=== PATIENT | female | born 1960 | race Caucasian/White ===

== ENCOUNTER → 2017-04-01 | Outpatient (CLI) | payer MEDICAID ==
--- NOTE | 2017-04-03 09:03 | MM ---
Reason for exam: screening (asymptomatic). Last mammogram was performed 5 years and 3 months ago. History: Patient is postmenopausal. Family history of breast cancer in sister at age 58. Physical Findings: A clinical breast exam by your physician is recommended on an annual basis and results should be correlated with mammographic findings. MG 3D Screening Mammo W/Cad Bilateral CC and MLO view(s) were taken. Prior study comparison: January 08, 2012, CAD bilateral diagnostic mammogram. There are scattered fibroglandular densities. No significant changes when compared with prior studies. ASSESSMENT: Benign, BI-RAD 2 RECOMMENDATION: Routine screening mammogram of both breasts in 1 year.
== END | disposition home or self-care (01) ==
LOC: RADMAMWWP 07:23
PROVIDERS: ATTEND Family Medicine
DX: Z12.31 Encounter for screening mammogram for malignant neoplasm of breast (principal)
CPT/HCPCS: 77063; G0202

== ENCOUNTER → 2018-02-12 | Outpatient (CLI) | payer MEDICAID ==
[~2018-02-12] MED LIST: AMINOPHYLLINE 500 MG/20 ML VIAL IV ONE; REGADENOSON 0.4 MG/5 ML SYRINGE IV ONE
--- NOTE | 2018-02-12 12:02 | EST ---
EXERCISE STRESS DATE OF SERVICE: 02/12/2018 AGE: 58 SEX: F HT: 5'7" WT: 264 PROTOCOL: Lexiscan Cardiolite Stress Test HEART RATE REST: 64 BLOOD PRESSURE REST: 132/88 MAXIMUM HEART RATE ACHIEVED: 101 MAXIMUM BLOOD PRESSURE: 202/83 85% MPHR: 138 100% MPHR: 162 INDICATIONS: Chest pain. CLINICAL INFORMATION: Baseline rhythm sinus mechanism, rate 64, normal axis, intervals, normal electrocardiogram. Baseline blood pressure 132/88 mmHg. Patient received an injection of Lexiscan. Electrocardiographic monitoring revealed no evidence of diagnostic ischemic ST deviation. Cardiolite was injected per protocol. CONCLUSION: 1. Nondiagnostic electrocardiograph stress testing. 2. Nuclear images will be reported separately. MMODL / IJN: [id number] /
--- NOTE | 2018-02-12 12:17 | NM ---
EXAMINATION TYPE: NM stress lexiscan cardiolite DATE OF EXAM: 02/12/2018 COMPARISON: NONE HISTORY: Abnormal EKG TECHNIQUE: After the intravenous administration of 9.24 mCi Tc 99m Sestamibi - Cardiolite resting SP ECT images acquired 45 minutes post injection. The patient received 0.4mg Lexiscan, 22.9 mCi Tc 99m Sestamibi - Stress images obtained [address] injection FINDINGS: Review of stress and rest SPECT images demonstrates small fixed defect involving the apical inferior portion of the myocardium.. Gated analysis shows normal wall motion with an estimated left ventricul ar ejection fraction of 59 %. IMPRESSION: 1. Small fixed defect involving the apical inferior portion myocardium. Tiny area of adjacent stress- induced reversibility not excluded correlate clinically. 2. Ejection fraction 59%.
== END ==
LOC: RADNMMAIN 07:56
PROVIDERS: ATTEND Family Medicine
DX: R94.39 Abnormal result of other cardiovascular function study (principal); R94.31 Abnormal electrocardiogram [ECG] [EKG]
CPT/HCPCS: 93017; 78452; A9500; J2785

== ENCOUNTER → 2019-08-26 | Outpatient (CLI) | payer MEDICAID ==
[2019-08-26 15:35] LABS: HCT 40.1 % (34.0-46.0); HGB 12.8 gm/dL (11.4-16.0); MCH 28.2 pg (25.0-35.0); MCHC 32.1 g/dL (31.0-37.0); MCV 87.9 fL (80.0-100.0); Platelet Count 290 k/uL (150-450); RBC 4.56 m/uL (3.80-5.40); RDW 13.8 % (11.5-15.5)
[2019-08-26 15:44] LABS: Albumin 4.5 g/dL (3.5-5.0); Calcium 9.5 mg/dL (8.4-10.2); Potassium 4.6 mmol/L (3.5-5.1); Total Bilirubin 0.4 mg/dL (0.2-1.3); Total Protein 7.3 g/dL (6.3-8.2)
[2019-08-26 15:48] LABS: INR 0.9 (<1.2); Partial Thromboplastin Time 22.9 sec (22.0-30.0); Prothrombin Time 9.8 sec (9.0-12.0)
[2019-08-26 15:53] LABS: Appearance,Urine Clear (Clear); Bilirubin,Urine Negative (Negative); Blood,Urine Negative (Negative); Color,Urine Light Yellow; Glucose,Urine (UA) Negative (Negative); Ketones,Urine Negative (Negative); Leukocyte Esterase,Urine Negative (Negative); Nitrite,Urine Negative (Negative); Protein,Urine Negative (Negative); Urobilinogen,Urine <2.0 mg/dL (<2.0)
== END | disposition home or self-care (01) ==
LOC: LABPAT 15:15
PROVIDERS: ATTEND Orthopaedic Surgery
DX: Z01.812 Encounter for preprocedural laboratory examination (principal); M16.11 Unilateral primary osteoarthritis, right hip
CPT/HCPCS: 36415; 80053; 81003; 85027; 85610; 85730; 87070

== ENCOUNTER → 2020-01-03 | Outpatient (CLI) | payer MEDICAID ==
[2020-01-03 08:52] LABS: HCT 38.8 % (34.0-46.0); HGB 12.6 gm/dL (11.4-16.0); Hypochromasia Slight; MCHC 32.4 g/dL (31.0-37.0); MCV 89.5 fL (80.0-100.0); Mean Platelet Volume 7.2; Platelet Count 276 k/uL (150-450); RBC 4.34 m/uL (3.80-5.40); RDW 13.5 % (11.5-15.5); WBC 8.6 k/uL (3.8-10.6)
[2020-01-03 08:59] LABS: Albumin 4.4 g/dL (3.5-5.0); Calcium 9.3 mg/dL (8.4-10.2); Potassium 4.5 mmol/L (3.5-5.1); Total Bilirubin 0.5 mg/dL (0.2-1.3)
[2020-01-03 09:18] LABS: INR 0.9 (<1.2); Partial Thromboplastin Time 22.9 sec (22.0-30.0); Prothrombin Time 9.5 sec (9.0-12.0)
== END | disposition home or self-care (01) ==
LOC: LABPAT 07:42
PROVIDERS: ATTEND Orthopaedic Surgery
DX: Z01.818 Encounter for other preprocedural examination (principal); Z01.812 Encounter for preprocedural laboratory examination
CPT/HCPCS: 36415; 80053; 85027; 85610; 85730; 87070

== ENCOUNTER → 2020-01-05 | Outpatient (CLI) | payer MEDICAID ==
[2020-01-05 08:28] LABS: Appearance,Urine Clear (Clear); Bilirubin,Urine Negative (Negative); Blood,Urine Negative (Negative); Color,Urine Light Yellow; Glucose,Urine (UA) Negative (Negative); Ketones,Urine Negative (Negative); Leukocyte Esterase,Urine Negative (Negative); Nitrite,Urine Negative (Negative); PH, Urine 5.5 (5.0-8.0); Protein,Urine Negative (Negative); Specific Gravity,Urine 1.009 (1.001-1.035); Urobilinogen,Urine <2.0 mg/dL (<2.0)
== END | disposition home or self-care (01) ==
LOC: LABWHC1 07:02
PROVIDERS: ATTEND Orthopaedic Surgery
DX: Z01.818 Encounter for other preprocedural examination (principal)
CPT/HCPCS: 81003

== ENCOUNTER 2020-01-10 05:35 | Observation (INO) | payer MEDICAID ==
[2020-01-05 11:20] VITALS: BMI 42.7
[~2020-01-10 05:35] MED LIST changes: +ACETAMINOPHEN TAB 500 MG TAB PO ONE; -AMINOPHYLLINE 500 MG/20 ML VIAL IV ONE; +DEXAMETHASONE SOD PHOSPHATE 10 MG/ML 1 ML VIAL IV ONE; +GABAPENTIN 300 MG CAP PO ONE; +LIDOCAINE 1% (10MG/ML) FOR IV START INTRADERMA PRN; +MELOXICAM 7.5 MG TAB PO ONE; +MIDAZOLAM 2 MG/2 ML VIAL IV PRN; +ONDANSETRON 4 MG/2 ML VIAL IVP ONE; -REGADENOSON 0.4 MG/5 ML SYRINGE IV ONE; +TRANEXAMIC ACID 1,000 MG in SODIUM CHLORIDE 0.9% 100 ML IVPB ONE; +ceFAZolin 3 GM in SODIUM CHLORIDE 0.9% 100 ML IVPB ONE
[2020-01-10] MEDS ORDERED: ACETAMINOPHEN TAB 500 MG TAB ONE (05:39)
[2020-01-10] MEDS ORDERED: ONDANSETRON 4 MG/2 ML VIAL ONE (05:39)
[2020-01-10] MEDS: LACTATED RINGERS 1,000 ML IV SCH (06:06)
[2020-01-10 06:07] LABS: Glucose,Whole Blood 141 mg/dL (75-99)
[2020-01-10] MEDS ORDERED: ONDANSETRON 4 MG/2 ML VIAL IVP PRN (06:44)
[2020-01-10] MEDS ORDERED: hydrOXYzine pamoate 25 MG CAP PO PRN (06:44)
[2020-01-10] MEDS ORDERED: diazePAM 5 MG TAB PO PRN (06:44)
[2020-01-10] MEDS ORDERED: NALOXONE 0.4 MG/ML 1 ML VIAL IV PRN (06:44)
[2020-01-10] MEDS ORDERED: HYDROcodone/APAP 5-325MG 1 EACH TAB PO PRN (06:44)
[2020-01-10] MEDS ORDERED: HYDROmorphone 1 MG/ML 1 ML SYRINGE IVP PRN (06:44)
[2020-01-10] MEDS ORDERED: MAGNESIUM HYDROXIDE 2,400 MG/10 ML CUP PO PRN (06:44)
[2020-01-10] MEDS ORDERED: HYDROmorphone 0.5 MG/0.5 ML SYRINGE IVP PRN ×2 (06:44)
[2020-01-10] MEDS ORDERED: TRANEXAMIC ACID 1,000 MG/10 ML VIAL ONE (07:01)
[2020-01-10] MEDS ORDERED: SODIUM CHLORIDE 0.9% IRRIG 1,000 ML BTL IRRIGATION ONE (07:01)
[2020-01-10] MEDS ORDERED: HEPARIN SODIUM,PORCINE 10,000 UNIT/ML 1 ML VIAL ONE (07:01)
[2020-01-10] MEDS ORDERED: fentaNYL (PF) 50 MCG/ML 2 ML AMP ONE (07:01)
[2020-01-10] MEDS ORDERED: PHENYLEPHRINE-0.9% NACL SYG 1 MG/10 ML SYRINGE ONE (07:01)
[2020-01-10] MEDS ORDERED: SODIUM CHLORIDE 0.9% 100 ML BAG ONE (07:01)
[2020-01-10] MEDS ORDERED: PROPOFOL 10 MG/ML 20 ML VIAL IV ONE (07:01)
[2020-01-10] MEDS ORDERED: MIDAZOLAM 2 MG/2 ML VIAL ONE (07:01)
[2020-01-10] MEDS: ROPIVACAINE 246.25 MG, EPINEPHrine 0.5 MG, KETOROLAC 30 MG, cloNIDine HCL/PF 80 MCG, WA... MISCELLANE ONE ×10 (07:57→08:30)
--- NOTE | 2020-01-10 08:52 | P.OP ---
Date of Procedure: 01/10/20 Preoperative Diagnosis: Severe osteoarthritis right hip Postoperative Diagnosis: Severe osteoarthritis right hip Procedure(s) Performed: Right total hip arthroplasty with a direct anterior approach Implants: Tristan and nephew Polarstem size 4 standard Tristan [employer] Nephew R3, 3 hole acetabular shell, 52 mm Tristan [employer] Nephew reflection 6.5 mm cancellus screw, 20 mm 2 Tristna & Nephew R3, XLPE 20 acetabular liner Tristan [employer] Nephew Oxinium femoral head 36 m, +8 All components were press-fit. The articulation is Oxinium on polyethylene. Anesthesia: spinal Surgeon: Darrell Moreno Ampoule Sealer #1: Arlet Jenkins Estimated Blood Loss (ml): 400 (125 mL returned with Cell Saver) Pathology: other (Femoral head) Condition: stable Disposition: PACU Indications for Procedure: After failure of conservative treatment we discussed the surgical and nonsurgical treatment options at length. Patient wishes to proceed with a total hip arthroplasty with a direct anterior approach. Complications specific to this procedure were discussed at length, including but not limited to infection, leg length discrepancy, dislocation, and nerve injury. Covid-19 was also discussed at length with the patient, and they are aware of the current policies and procedures. The patient was given the option of delaying surgery, but they elect to proceed knowing these risks. Patient is aware of all these complications and informed consent was obtained Operative Findings: The operative findings are consistent with severe osteoarthritis of the right hip Description of Procedure: Patient was seen and evaluated in the preoperative area, consent was reviewed, and the surgical site was marked with a skin marker. Patient was then brought to the operating room and given prophylactic antibiotics intravenously. 1 g of Tranexamic acid was also given. A spinal anesthetic was administered by the anesthesia department. The patient was then placed on the [place] table with the bony prominences well-padded. The hip area was then prepped and draped in usual sterile fashion. A universal timeout was then performed, which confirmed the patient's name, surgical site, ALLERGIES, and procedure being performed. Next the incision site was located at 1 cm distal and 1 cm lateral to the anterior superior iliac spine. The skin and subcutaneous tissues were sharply incised. Incision was carefully dissected down to the fascia overlying the tensor fascia deric muscle. This fascia was then incised in line with the incision. Next, using blunt finger dissection, the tensor fascia deric muscle was dissected off its investing fascia. The muscle was then carefully retracted laterally with a cobra retractor over the lateral neck of the femur. Next, the circumflex vessels were identified and cauterized using the AquaMantis device. The anterior hip capsule was then exposed. The capsule was then opened and an inverted T fashion. Cobra retractors were then placed intracapsularly. The proximal femur was then visualized. The femoral neck was then osteotomized appropriate level above the lesser trochanter. Small amount of traction was placed with the [place] table. A small wedge of bone was then removed from the remaining femoral head. Next, using a corkscrew femoral head was easily removed from the acetabulum. On gross visual inspection, the femoral head had complete loss of articular cartilage in multiple periarticular osteophytes. Attention was then turned to the acetabulum. the acetabulum was exposed and any remaining labrum was excised. Sequential reaming of the acetabulum was performed using fluoroscopic guidance. When the appropriate size was reached, a trial was then placed. The position and fit of the trial was checked with fluoroscopy. The trial was then removed. Then, using fluoroscopic guidance, the final implant was impacted at 20 of anteversion and 40 of abduction, and fully seated in the acetabulum. 2 screws were then placed in the acetabulum. Again fluoroscopy was used to check position of the screws. Next, the liner was then impacted, with a 20 elevated liner located in the anterior superior quadrant. Component locking was confirmed. Attention was then directed to the femur. With the aid of the [place] table, the femur was externally rotated to approximately 130, extended, and abducted under the opposite leg. A side hook was then placed under the proximal femur, and the side hook elevator was used to elevate the proximal femur. Retractors were then placed. A capsular release was performed, as well as a release of the conjoined tendon, which afforded excellent visualization of the proximal femur. Next, a box osteotome was used to lateralize the proximal femur. A block hand was then used to locate the femoral canal. Sequential broaching was then performed with appropriate size which afforded excellent fixation in the proximal femur. A trial was then placed with appropriate head and neck, and the hip was gently reduced with the aid of the [place] table. Fluoroscopy was then used to check position of the components, as well as to ensure equal leg lengths. The hip was then gently dislocated and the trials were then removed. Final implants were then impacted and the hip was again reduced. Final fluoroscopic x-rays confirmed that the components were in anatomic position, as well as equal leg lengths. The hip was also taken through range of motion, and found to be stable. The hip was then copiously irrigated with antibiotic solution with pulsatile lavage. The hip was then irrigated with Irrisept solution. The soft tissues were then injected with a ropivacaine solution, which consisted of 246.25 mg of ropivacaine, 0.5 mg of epinephrine, 30 mg of Toradol, 80 g of clonidine, and 48.45 mL of sterile water, for a total of 100 mL of fluid injected. A second dose of 1 g of Tranexamic acid was also given. the fascia was then closed with 2-0 strata fix suture. The subcutaneous tissue was closed with 3-0 Vicryl. The subcuticular tissue was closed with 3-0 strata fix suture. The skin was then closed with Dermabond glue and a sterile silver dressing. The patient was then transferred to the recovery room in stable condition. The bookkeeper assistant SHEFALI Brambila was required due to the complexity of surgery, and the need for skilled surgical scrub technician for positioning, draping, exposure, retraction, and closure of the wound.
--- NOTE | 2020-01-10 09:10 | FL ---
EXAMINATION TYPE: FL guidance operating room, XR Hip Limited RT DATE OF EXAM: 01/10/2020 COMPARISON: NONE HISTORY: Right hip arthroplasty TECHNIQUE: Fluoroscopy. FINDINGS: Fluoroscopic guidance was provided during procedure performed by Dr. Moreno. A total of 45 seconds of fluoroscopic time was utilized during the procedure and 2 spot images was acquired. IMPRESSION: Intraoperative fluoroscopic guidance as above. Please see performing physicians operative note.
[2020-01-10] MEDS: HYDROmorphone 0.5 MG/0.5 ML SYRINGE IVP PRN ×2 (09:39→13:10)
[2020-01-10 09:54] LABS: Glucose,Whole Blood 182 mg/dL (75-99)
--- NOTE | 2020-01-10 09:56 | XR ---
EXAMINATION TYPE: XR Hip Limited RT DATE OF EXAM: 01/10/2020 CLINICAL HISTORY: Right hip arthroplasty TECHNIQUE: Single frontal portable view of the right are obtained. COMPARISON: Intraoperative fluoroscopy images 01/10/2020 FINDINGS: Status post right hip arthroplasty demonstrates appropriate alignment on frontal image. Th ere is no acute dislocation of the right hip. No unexpected radiopaque foreign body. IMPRESSION: Status post right hip arthroplasty. No unexpected radiopaque foreign body.
[2020-01-10] MEDS: ceFAZolin 3 GM in SODIUM CHLORIDE 0.9% 100 ML IVPB SCH ×2 (16:38→23:00)
[2020-01-10] MEDS: SODIUM CHLORIDE 0.9% 1,000 ML IV SCH (16:39)
[2020-01-10] MEDS: HYDROcodone/APAP 5-325MG 1 EACH TAB PO PRN (16:39)
[2020-01-10 16:48] LABS: Glucose,Whole Blood 246 mg/dL (75-99)
[2020-01-10] MEDS: INSULIN ASPART (NovoLOG) 100 UNIT/ML VIAL SQ SCH ×2 (17:16→21:02)
[2020-01-10] MEDS: glipiZIDE 5 MG TAB PO SCH (17:16)
[2020-01-10] MEDS: metFORMIN 500 MG TAB PO SCH (17:17)
[2020-01-10 20:51] LABS: Glucose,Whole Blood 136 mg/dL (75-99)
[2020-01-10] MEDS ORDERED: ATORVASTATIN 20 MG TAB PO SCH (21:00)
[2020-01-10] MEDS ORDERED: SENNOSIDES-DOCUSATE SODIUM 1 EACH TAB PO SCH (21:00)
[2020-01-10] MEDS ORDERED: lisinopriL 20 MG TAB PO SCH (21:00)
[2020-01-10] MEDS: ASPIRIN 325 MG TAB PO SCH (21:02)
--- NOTE | 2020-01-10 23:17 | P.CONS ---
History of Present Illness - Reason for Consult Consult date: 01/10/20 medical management Requesting physician: Darrell Moreno - Chief Complaint Right hip pain - History of Present Illness Consultation: This is a pleasant 59-year-old patient of Dr. sue. From [place]. Chronic stable medical conditions include diabetes, GERD, hypertension, hyperlipidemia. Patient is undergoing right total hip arthroplasty. Some pain in the operative site. No nausea or vomiting. He tolerated his supper. No chest pain or shortness of breath. Laying in bed Review of systems: GEN.: None EYES: None HEENT: None NECK: None RESPIRATORY: None CARDIOVASCULAR: None GASTROINTESTINAL: None GENITOURINARY: None MUSCULOSKELETAL: Pain in joints LYMPHATICS: None HEMATOLOGICAL: None PSYCHIATRY: None NEUROLOGICAL: None Past medical history: Diabetes, GERD, hypertension, hyperlipidemia Social history: Does not smoke or drink alcohol. Physical examination: VITAL SIGNS: 98.7, 82, 18, 136/69, 95% on room air GENERAL: BMI of 42.2, propped up in bed, awake. EYES: Pupils equal. Conjunctiva normal. HEENT: External appearance of nose and ears normal, oral cavity grossly normal. NECK: JVD not raised; masses not palpable. HEART: First and second heart sounds are normal; no edema. LUNGS: Respiratory rate normal; clear to auscultation. ABDOMEN: Soft, nontender, liver spleen not palpable, no masses palpable. PSYCH: Alert and oriented x3; mood and affect normal. NEUROLOGICAL: Cranial nerves grossly intact; no facial asymmetry, power and sensation grossly intact. MUSCULAR skeletal: Dressing over the right hip, LYMPHATICS: No lymph nodes palpable in the axilla and neck INVESTIGATIONS, reviewed in the clinical context: From January 02: White count 8.6 hemoglobin 12.6 potassium 4. creatinine 1.06 Assessment: -Right total hip arthroplasty -Diabetes mellitus type 2, on oral hypoglycemic -Coagulant-essential hypertension -Hyperlipidemia -Morbid obesity BMI 43.2 Plan: Home medications resumed. Accu-Cheks will be followed. patient on aspirin per Dr. rizvi for DVT prophylaxis and Venodyne boots. Pain control in place. Care is discussed with the patient and questions were answered Thank you Dr. Moreno Past Medical History Past Medical History: Diabetes Mellitus, GERD/Reflux, Hyperlipidemia, Hypertension History of Any Multi-Drug Resistant Organisms: None Reported Past Surgical History: Cholecystectomy, Hysterectomy, Joint Replacement, Orthopedic Surgery Additional Past Surgical History / Comment(s): total left knee, rt elbow pins, navneet cataract, total right hip 01/06/28 Past Anesthesia/Blood Transfusion Reactions: No Reported Reaction Past Psychological History: No Psychological Hx Reported Smoking Status: Never smoker Past Alcohol Use History: Rare Past Drug Use History: None Reported - Past Family History Father Family Medical History: Cancer Additional Family Medical History / Comment(s): lung Sister(s) Family Medical History: Cancer Additional Family Medical History / Comment(s): 1-breast, 1-osteosarcoma Medications and Allergies Home Medications Medication Instructions Recorded Confirmed Type Atorvastatin [Lipitor] 20 mg PO HS 01/05/20 01/10/20 History Ergocalciferol [Vitamin D2] 50,000 unit PO FLORES 01/05/20 01/10/20 History Omeprazole 20 mg PO DAILY 01/05/20 01/10/20 History glipiZIDE [Glucotrol] 5 mg PO AC-BID 01/05/20 01/10/20 History lisinopriL 20 mg PO HS 01/05/20 01/10/20 History metFORMIN HCL 1,000 mg PO BID 01/05/20 01/10/20 History Allergies Allergy/AdvReac Type Severity Reaction Status Date / Time No Known Allergies Allergy Unverified 01/05/20 11:09 Physical Exam Vitals: Vital Signs Temp Pulse Pulse Pulse Resp BP Pulse Ox 01/10/20 20:00 82 18 01/10/20 18:50 98.7 F 82 96/58 96 01/10/20 15:00 98.5 F 85 18 136/69 95 01/10/20 14:01 98.5 F 85 18 136/69 95 01/10/20 13:30 79 16 138/70 97 01/10/20 12:30 78 16 149/77 97 01/10/20 11:30 73 18 147/67 99 01/10/20 11:00 70 16 144/66 99 01/10/20 10:30 73 16 138/63 98 01/10/20 10:00 82 16 145/69 97 01/10/20 09:48 81 16 119/53 95 01/10/20 09:33 82 18 139/62 99 01/10/20 09:18 83 18 145/65 98 01/10/20 09:03 98.2 F 90 14 127/58 98 01/10/20 05:53 95.1 F L 85 16 150/72 98 Intake and Output 01/10/20 01/10/20 01/11/20 14:59 22:59 06:59 Intake Total 1250 Output Total 400 Balance 850 Intake: IV 1250 Output: Estimated Blood Loss 400 Other: Voiding Method Toilet Toilet # Voids 1 1 Weight 125 kg Results Labs: Abnormal Lab Results - Last 24 Hours (Table) 01/10/20 01/10/20 01/10/20 Range/Units 06:04 09:48 16:45 POC Glucose (mg/dL) 141 H 182 H 246 H (75-99) mg/dL 01/10/20 Range/Units 20:51 POC Glucose (mg/dL) 136 H (75-99) mg/dL
[2020-01-11] MEDS: SODIUM CHLORIDE 0.9% 1,000 ML IV SCH ×2 (03:04→06:56)
[2020-01-11] MEDS: LACTATED RINGERS 1,000 ML IV SCH (03:06)
[2020-01-11] MEDS: HYDROcodone/APAP 5-325MG 1 EACH TAB PO PRN (06:27)
[2020-01-11 07:02] LABS: Glucose,Whole Blood 101 mg/dL (75-99)
[2020-01-11] MEDS: INSULIN ASPART (NovoLOG) 100 UNIT/ML VIAL SQ SCH (07:04)
[2020-01-11 07:24] VITALS: BP 111/69; PULSE 74; RESP 16; TEMP 98.1
[2020-01-11] MEDS ORDERED: PANTOPRAZOLE 40 MG TABLET PO SCH (07:30)
[2020-01-11] MEDS: metFORMIN 500 MG TAB PO SCH (07:35)
[2020-01-11] MEDS: ASPIRIN 325 MG TAB PO SCH (07:36)
[2020-01-11] MEDS: glipiZIDE 5 MG TAB PO SCH (07:36)
[2020-01-11 08:31] LABS: Basophils % (A) 0 %; Eosinophils # (A) 0.1 k/uL (0-0.7); Eosinophils % (A) 1 %; HCT 28.6 % (34.0-46.0); Lymphocytes # (A) 1.8 k/uL (1.0-4.8); Lymphocytes % (A) 20 %; MCH 29.4 pg (25.0-35.0); MCHC 33.3 g/dL (31.0-37.0); MCV 88.1 fL (80.0-100.0); Mean Platelet Volume 7.2; Monocytes # (A) 0.4 k/uL (0-1.0); Monocytes % (A) 5 %; Neutrophils # (A) 6.4 k/uL (1.3-7.7); Neutrophils % (A) 73 %; Platelet Count 199 k/uL (150-450); RBC 3.24 m/uL (3.80-5.40); RDW 13.8 % (11.5-15.5); WBC 8.7 k/uL (3.8-10.6)
[2020-01-11 08:36] LABS: HGB 9.5 gm/dL (11.4-16.0)
[2020-01-11] MEDS ORDERED: MELOXICAM 7.5 MG TAB PO SCH (09:00)
--- NOTE | 2020-01-11 09:34 | P.DS ---
Providers Date of admission: 01/11/20 02:30 Expected date of discharge: 01/11/20 Attending physician: Darrell Moreno Consults: 01/10/20 06:44 Consult Physician Routine Consulting Provider: Les Medina Consult Reason/Comments: medical management Do you want consulting provider notified?: Yes Primary care physician: Juan Carlos Martines - Discharge Diagnosis(es) (1) Osteoarthritis of right hip Current Visit: Yes Status: Acute (2) Status post total hip replacement, right Current Visit: Yes Status: Acute Hospital Course: This is a 59-year-old female with known history of degenerative arthritis of the right hip. The patient presents for evaluation. After discussion and consideration patient elects to proceed with total hip arthroplasty. The patient is seen preoperatively by Dr. Moreno and medically cleared for surgery by their primary care physician. Patient is admitted to [facility] on 01/10/2020 for total hip arthroplasty. The procedures performed without complication or sequelae. The patient is doing well postoperatively. Labs and vital signs are stable on day of discharge. On day of discharge patient's hip incision is healing well. There is minimal erythema. There is no drainage noted at this time. There is minimal soft tissue swelling to the hip and thigh. Patient has full foot and ankle motion without difficulty or pain. Calf is soft and nontender to palpation. Neurovascular status to the right lower extremity is intact. Patient is discharged home in good condition. Opioid start talking form is reviewed and signed at patient bedside. Please see med rec for accurate list of home medications. Plan - Discharge Summary Discharge Rx Participant: Yes New Discharge Prescriptions: New Aspirin 325 mg PO BID #60 tab HYDROcodone/APAP 5-325MG [[place] 5-325] 1 - 2 tab PO Q6HR PRN #48 tab PRN Reason: Pain Sennosides [Senokot] 2 tab PO DAILY PRN #60 tablet PRN Reason: Constipation No Action Ergocalciferol [Vitamin D2] 50,000 unit PO FLORES metFORMIN HCL 1,000 mg PO BID lisinopriL 20 mg PO HS glipiZIDE [Glucotrol] 5 mg PO AC-BID Atorvastatin [Lipitor] 20 mg PO HS Omeprazole 20 mg PO DAILY Discharge Medication List Atorvastatin [Lipitor] 20 mg PO HS 01/05/20 [History] Ergocalciferol [Vitamin D2] 50,000 unit PO FLORES 01/05/20 [History] Omeprazole 20 mg PO DAILY 01/05/20 [History] glipiZIDE [Glucotrol] 5 mg PO AC-BID 01/05/20 [History] lisinopriL 20 mg PO HS 01/05/20 [History] metFORMIN HCL 1,000 mg PO BID 01/05/20 [History] Aspirin 325 mg PO BID #60 tab 01/11/20 [Rx] HYDROcodone/APAP 5-325MG [[place] 5-325] 1 - 2 tab PO Q6HR PRN #48 tab 01/11/20 [Rx] Sennosides [Senokot] 2 tab PO DAILY PRN #60 tablet 01/11/20 [Rx] Follow up Appointment(s)/Referral(s): Darrell Moreno DO [Doctor of Osteopathic Medicine] - 2 Weeks Activity/Diet/Wound Care/Special Instructions: Weightbearing as tolerated with walker. Leave dressing intact. Dressing may be removed by home care nurse or by patient in 10 days. May shower with dressing on. Recommend use of compression stockings daily until follow up to help prevent swelling and blood clots. May remove at night before sleeping. Please follow-up with [facility] in 2 weeks and call with any questions or concerns, . Discharge Disposition: HOME WITH HOME HEALTH SERVICES
== END 2020-01-11 10:24 | disposition home health service (06) ==
LOC: OR 05:35 → 4SSUR 13:34 → OR 01-11 02:46
PROVIDERS: ADMIT Orthopaedic Surgery; ATTEND Orthopaedic Surgery
DX: M16.11 Unilateral primary osteoarthritis, right hip (principal); I10 Essential (primary) hypertension; E11.9 Type 2 diabetes mellitus without complications; K21.9 Gastro-esophageal reflux disease without esophagitis; E78.5 Hyperlipidemia, unspecified; M17.11 Unilateral primary osteoarthritis, right knee; E66.01 Morbid (severe) obesity due to excess calories; Z68.41 Body mass index [BMI] 40.0-44.9, adult; Z79.84 Long term (current) use of oral hypoglycemic drugs; Z79.899 Other long term (current) drug therapy; Z90.710 Acquired absence of both cervix and uterus; Z90.49 Acquired absence of other specified parts of digestive tract; Z96.652 Presence of left artificial knee joint; Z98.42 Cataract extraction status, left eye; Z98.41 Cataract extraction status, right eye; Z82.49 Family history of ischemic heart disease and other diseases of the circulatory system; Z80.1 Family history of malignant neoplasm of trachea, bronchus and lung; Z80.8 Family history of malignant neoplasm of other organs or systems; Z80.3 Family history of malignant neoplasm of breast
CPT/HCPCS: 97110; 97161; 97535; 97165; 86891; 86900; 86901; 85025; 86850; 88300; 73501; 27130; G0378; P9022; C1776; J2250; J0171; J1644; J1100; J0690; J2405; J3010; J1885; J2795; J2370; J2704; J0735; J1170

== ENCOUNTER → 2020-04-09 | Outpatient (CLI) | payer MEDICAID ==
--- NOTE | 2020-04-11 10:06 | MM ---
Reason for exam: screening (asymptomatic). Last mammogram was performed 3 years ago. History: Patient is postmenopausal. Family history of breast cancer in sister at age 58. Physical Findings: A clinical breast exam by your physician is recommended on an annual basis and results should be correlated with mammographic findings. MG 3D Screening Mammo W/Cad Bilateral CC and MLO view(s) were taken. Prior study comparison: April 01, 2017, bilateral MG 3d screening mammo w/cad. January 08, 2012, CAD bilateral diagnostic mammogram. There are scattered fibroglandular densities. No significant changes when compared with prior studies. ASSESSMENT: Benign, BI-RAD 2 RECOMMENDATION: Routine screening mammogram of both breasts in 1 year.
== END | disposition home or self-care (01) ==
LOC: RADMAMWWP 07:31
PROVIDERS: ATTEND Family Medicine
DX: Z12.39 Encounter for other screening for malignant neoplasm of breast (principal)
CPT/HCPCS: 77063; 77067

== ENCOUNTER → 2020-10-23 | Outpatient (CLI) | payer MEDICAID ==
[2020-10-23 08:25] LABS: HCT 34.9 % (34.0-46.0); HGB 11.4 gm/dL (11.4-16.0); MCH 27.4 pg (25.0-35.0); MCHC 32.8 g/dL (31.0-37.0); MCV 83.6 fL (80.0-100.0); Mean Platelet Volume 6.7; Platelet Count 255 k/uL (150-450); RBC 4.17 m/uL (3.80-5.40); RDW 14.8 % (11.5-15.5); WBC 6.7 k/uL (3.8-10.6)
[2020-10-23 08:43] LABS: Potassium 5.2 mmol/L (3.5-5.1)
== END | disposition home or self-care (01) ==
LOC: LABPAT 07:43
PROVIDERS: ATTEND Internal Medicine
DX: Z01.812 Encounter for preprocedural laboratory examination (principal); R07.9 Chest pain, unspecified
CPT/HCPCS: 36415; 80051; 82565; 84520; 85027

== ENCOUNTER 2020-10-26 05:41 | Day surgery (SDC) | payer MEDICAID ==
[2020-10-23 09:04] VITALS: BMI 44.6
[2020-10-26] MEDS ORDERED: ALPRAZolam 0.25 MG TAB PO PRN (06:03)
[2020-10-26] MEDS ORDERED: SODIUM CHLORIDE 0.9% 1,000 ML in EMPTY BAG 1 BAG IV ONE (06:03)
[2020-10-26] MEDS ORDERED: NITROGLYCERIN SL TABS 0.4 MG TAB SUBLINGUAL PRN (06:03)
[2020-10-26] MEDS ORDERED: ALPRAZolam 0.5 MG TAB PO PRN (06:03)
[2020-10-26] MEDS ORDERED: HEPARIN SODIUM,PORCINE 2,500 UNIT in SODIUM CHLORIDE 0.9% 250 ML IRRIGATION PRN (06:03)
[2020-10-26 06:19] LABS: Glucose,Whole Blood 112 mg/dL (75-99)
[2020-10-26 06:23] VITALS: RESP 16; TEMP 99.3
[2020-10-26 06:45] LABS: Calcium 9.2 mg/dL (8.4-10.2); Potassium 4.4 mmol/L (3.5-5.1)
[2020-10-26] MEDS ORDERED: ASPIRIN 325 MG TAB PO ONE (07:00)
[2020-10-26] MEDS ORDERED: HEPARIN SODIUM,PORCINE 10,000 UNIT in SODIUM CHLORIDE 0.9% 1,000 ML IRRIGATION PRN (07:00)
[2020-10-26] MEDS ORDERED: ATORVASTATIN 80 MG TAB PO ONE (07:00)
[2020-10-26] MEDS ORDERED: LIDOCAINE 1% INJ 10MG/ML (20 ML MDV) ONE (07:26)
[2020-10-26] MEDS ORDERED: VERAPAMIL 2.5 MG/ML 2 ML AMP ONE (07:27)
[2020-10-26] MEDS: MIDAZOLAM 2 MG/2 ML VIAL IV ONE ×2 (07:31→07:45)
[2020-10-26] MEDS ORDERED: fentaNYL (PF) 50 MCG/ML 2 ML AMP IV ONE (07:35)
[2020-10-26] MEDS ORDERED: LIDOCAINE 1% INJ 10MG/ML (20 ML MDV) SQ ONE (07:37)
[2020-10-26] MEDS ORDERED: fentaNYL (PF) 50 MCG/ML 2 ML AMP ONE (07:38)
[2020-10-26] MEDS ORDERED: HEPARIN SODIUM 1,000 UN/ML (10ML VL) ONE (07:40)
[2020-10-26] MEDS ORDERED: IOPAMIDOL-370 100ML BTL INJ ONE ×2 (08:04→08:07)
[2020-10-26] MEDS ORDERED: RX INFO: IV CONTRAST WAS GIVEN 1 EACH MISC MISCELLANE PRN (09:47)
[2020-10-26] MEDS ORDERED: SODIUM CHLORIDE 0.9% 1,000 ML IV SCH (10:00)
[2020-10-26 10:58] VITALS: BP 155/69; PULSE 64
--- NOTE | 2020-10-26 18:12 | P.CARDCATH ---
Description of Procedure: PROCEDURES PERFORMED: Left heart catheterization, bilateral coronary angiography, iFR RCA INDICATION: Abnormal stress test, chest pain HISTORY: Patient is a pleasant 60-year-old female who had workup for chest pain which was somewhat atypical occasionally only a few minutes and not associated with exertion however also had other chest pain which was worse with exertion. She underwent stress echo where she had poor exercise tolerance with chest pain noted on treadmill and inducible inferior ischemia. CONSENT:I have discussed the risks, benefits and alternative therapies for the above-mentioned procedure and for both sedation/analgesia as well as necessary blood product administration, if indicated, as they pertain to this patient. The patient has indicated understanding and acceptance of the risks and procedures discussed. PROCEDURE: After the risks, benefits and alternatives of the above mentioned procedure explained in detail with the patient, informed consent was obtained. Patient was taken to the catheterization lab and prepped and draped in usual fashion. 1% lidocaine was used to anesthetize the right radial artery. A 6- Portuguese sheath was placed in the right radial artery using modified Seldinger technique. Left coronary angiography was performed with a 5-Portuguese JL 3.5 catheter and right coronary angiography was performed with a 5-Portuguese JR5 catheter in various views. A 5-Portuguese FR5 catheter was inserted into the left ventricle and pressure measurements were obtained. The decision was made to iFR the RCA. A 6Fr AL 0.75 guide was used to engage the RCA. A 0.014 pressure wire was normalized and then advanced 1-2 cm distal to the mid RCA lesion. There was initial drift with pullback and therefore this was repeated. iFR was measured at 0.93, normal. The wire and catheter were then removed. The right radial sheath was removed and a TR band was placed with hemostasis achieved. The patient tolerated the procedure well. Patient was transported back to the post catheterization holding area in stable condition. Conscious Sedation: Patient was monitored under the direct supervision of vision of myself for conscious sedation using Versed and fentanyl for a total duration of 32 minutes HEMODYNAMICS: Aorta: 142/78 MARY ANNE: 140/2, LVEDP 14 SELECTIVE CORONARY ARTERIOGRAPHY: LEFT MAIN: The left main is a large caliber vessel which bifurcates into the LAD and circumflex. There is no significant stenosis. LEFT ANTERIOR DESCENDING CORONARY ARTERY: LAD is a large caliber vessel however is becomes a smaller caliber vessel distally and majority of the apex appears fed by PDA. There is a mid LAD 30% stenosis. There are left to right collaterals the PDA. LEFT CIRCUMFLEX CORONARY ARTERY: Left circumflex is a moderate caliber vessel. There is a ostial circumflex 30% stenosis and a mid circumflex 40% stenosis. RIGHT CORONARY ARTERY: The right coronary artery is a large caliber vessel which gives off a PDA and PLV branch and is the dominant vessel. There is diffuse heavily calcified mid RCA 50-60% stenosis. iFR at this level was negative. The PDA is a small caliber vessel and has diffuse 70% proximal disease and a mid PDA 90% stenosis with ANNA 1-2 flow distally. FINAL IMPRESSION: 1. CAD as described above with 30% mid LAD stenosis, 40% circumflex stenosis, mid RCA 50-60% stenosis, mid PDA 90% stenosis. 2. Normal ejection fraction 60% percent without wall motion abnormalities. 3. iFR of mid RCA lesion normal at 0.93. PLAN: 1. Aggressive risk factor modification per most recent ACC/AHA guidelines. 2. PDA noted to be fairly small caliber with diffuse disease and not very amenable to stenting. Would treat PDA medically at this time as there also appe ared to be oylh-er-bfhcy collaterals. iFR mid RCA noted to be normal at 0.93 and would treat RCA medically at this time as well. Increase antianginals as able. 3. Follow-up in the office in 1-2 weeks.
[2020-10-26] MEDS ORDERED: ATORVASTATIN 40 MG TAB PO SCH (21:00)
[2020-10-26] MEDS ORDERED: lisinopriL 20 MG TAB PO SCH (21:00)
[2020-10-26] MEDS ORDERED: GLIPIZIDE 5 MG PO SCH (21:00)
[2020-10-27] MEDS ORDERED: PANTOPRAZOLE 40 MG TABLET PO SCH (07:30)
[2020-10-27] MEDS ORDERED: METOPROLOL SUCCINATE (ER) 50 MG TAB.ER.24H PO SCH (09:00)
[2020-10-27] MEDS ORDERED: ASPIRIN 81 MG PO SCH (09:00)
[2020-10-28] MEDS ORDERED: ERGOCALCIFEROL 1,250 MCG (50,000 IU) CAPSULE PO SCH (09:00)
== END 2020-10-26 12:10 | disposition home or self-care (01) ==
LOC: CATHCVL 05:41
PROVIDERS: ATTEND Internal Medicine
DX: I25.10 Atherosclerotic heart disease of native coronary artery without angina pectoris (principal); I25.84 Coronary atherosclerosis due to calcified coronary lesion; E11.9 Type 2 diabetes mellitus without complications; I10 Essential (primary) hypertension; E78.5 Hyperlipidemia, unspecified; E66.9 Obesity, unspecified; Z68.41 Body mass index [BMI] 40.0-44.9, adult; I49.3 Ventricular premature depolarization; Z82.49 Family history of ischemic heart disease and other diseases of the circulatory system; Z79.899 Other long term (current) drug therapy
CPT/HCPCS: 93571; 93458; 80048; 87635; C1887; C1894; C1769; J2250; J2001; J3010; J1644; Q9967

== ENCOUNTER → 2021-04-18 | Outpatient (CLI) | payer MEDICAID, OTHER | END | disposition home or self-care (01) | LOC: LABWHC1 16:40 | PROVIDERS: ATTEND Emergency Medicine | DX: Z20.822 Contact with and (suspected) exposure to COVID-19 (principal) | CPT/HCPCS: 87635 ==

== ENCOUNTER → 2021-04-19 | Outpatient (CLI) | payer MEDICAID, OTHER | END | disposition home or self-care (01) | LOC: LABMAIN 12:40 | PROVIDERS: ATTEND Emergency Medicine | DX: Z20.822 Contact with and (suspected) exposure to COVID-19 (principal) | CPT/HCPCS: 87635 ==

== ENCOUNTER → 2021-07-11 | Outpatient (CLI) | payer MEDICAID ==
--- NOTE | 2021-07-15 09:00 | MM ---
Reason for exam: screening (asymptomatic). Last mammogram was performed 1 year and 3 months ago. History: Patient is postmenopausal. Family history of breast cancer in sister at age 58. Physical Findings: A clinical breast exam by your physician is recommended on an annual basis and results should be correlated with mammographic findings. MG 3D Screening Mammo W/Cad Bilateral CC and MLO view(s) were taken. Prior study comparison: April 09, 2020, bilateral MG 3d screening mammo w/cad. April 01, 2017, bilateral MG 3d screening mammo w/cad. There are scattered fibroglandular densities. There is chronic nodularity in the right breast. No significant changes when compared with prior studies. ASSESSMENT: Benign, BI-RAD 2 RECOMMENDATION: Routine screening mammogram of both breasts in 1 year.
== END | disposition home or self-care (01) ==
LOC: RADMAMWWP 07:47
PROVIDERS: ATTEND Family Medicine
DX: Z12.31 Encounter for screening mammogram for malignant neoplasm of breast (principal); Z78.0 Asymptomatic menopausal state; Z80.3 Family history of malignant neoplasm of breast
CPT/HCPCS: 77063; 77067

== ENCOUNTER → 2022-05-27 | Outpatient (CLI) | payer MEDICAID ==
[2022-05-27 14:38] LABS: Basophils # (A) 0.06 X 10*3/uL (0.00-0.10); Basophils % (A) 0.9 %; Eosinophils # (A) 0.19 X 10*3/uL (0.04-0.35); Eosinophils % (A) 2.9 %; HCT 39.5 % (37.2-46.3); HGB 12.1 g/dL (12.0-15.0); Immature Grans, Automated 0.3 %; Lymphocytes # (A) 1.85 X 10*3/uL (0.90-5.00); Lymphocytes % (A) 28.1 %; MCH 28.1 pg (27.0-32.0); MCHC 30.6 g/dL (32.0-37.0); MCV 91.6 fL (80.0-97.0); Mean Platelet Volume 9.8 fL (9.5-12.2); Monocytes # (A) 0.43 X 10*3/uL (0.20-1.00); Monocytes % (A) 6.5 %; NRBC Per 100 WBC 0 /100 WBCS (0.0-0.0); Neutrophils # (A) 4.03 X 10*3/uL (1.80-7.70); Neutrophils % (A) 61.3 %; Platelet Count 252 X 10*3/uL (140-440); RBC 4.31 X 10*6/uL (4.10-5.20); RDW 13.3 % (11.5-14.5); WBC 6.58 X 10*3/uL (4.50-10.00)
[2022-05-27 16:20] LABS: ALT 15 U/L (8-44); AST 13 U/L (13-35); African American GFR (CKD) 67.5 (60.0-200.0); Albumin/Globulin Ratio 1.88 (1.60-3.17); Alkaline Phosphatase 87 U/L (41-126); BUN/Creat Ratio 13.69 Ratio (12.00-20.00); Blood Urea Nitrogen 14.1 mg/dL (9.0-27.0); Calcium 9.6 mg/dL (8.7-10.3); Carbon Dioxide 25.5 mmol/L (20.0-27.5); Chloride 104 mmol/L (96-109); Chol/HDL Ratio 3.16 Ratio; Globulin 2.1 g/dL (1.6-3.3); Glucose 125 mg/dL (70-110); LDL Cholesterol,Calculated 64.2 mg/dL (0.0-131.0); Non-African American GFR(CKD) 58.2 (60.0-200.0); Sodium 144 mmol/L (135-145); Total Protein 6.2 g/dL (6.2-8.2)
== END | disposition home or self-care (01) ==
LOC: LABWHC1 07:53
PROVIDERS: ATTEND Nurse Practitioner
DX: I10 Essential (primary) hypertension (principal); E11.9 Type 2 diabetes mellitus without complications; E78.5 Hyperlipidemia, unspecified; E55.9 Vitamin D deficiency, unspecified; R53.83 Other fatigue
CPT/HCPCS: 36415; 80053; 80061; 82306; 82607; 82746; 83036; 84439; 84443; 85025

== ENCOUNTER → 2023-09-17 | Outpatient (CLI) | payer MEDICAID ==
[2023-09-17 14:45] LABS: HCT 37.1 % (37.2-46.3); HGB 11.6 g/dL (12.0-15.0); MCH 28.2 pg (27.0-32.0); MCHC 31.3 g/dL (32.0-37.0); MCV 90.3 FL (80.0-97.0); Mean Platelet Volume 9.9 FL (9.5-12.2); NRBC Per 100 WBC 0 X 10*3/uL (0.00-0.01); Platelet Count 221 X 10*3/uL (140-440); RBC 4.11 X 10*6/uL (4.10-5.20); RDW 13.2 % (11.5-14.5)
[2023-09-17 15:15] LABS: ALT 19 U/L (8-44); AST 15 U/L (13-35); Albumin/Globulin Ratio 1.82 Ratio (1.60-3.17); Alkaline Phosphatase 82 U/L (41-126); BUN/Creat Ratio 13.36 Ratio (12.00-20.00); Blood Urea Nitrogen 14.7 mg/dL (9.0-27.0); Calcium 9.3 mg/dL (8.7-10.3); Carbon Dioxide 26.9 mmol/L (21.6-31.8); Chloride 107 mmol/L (96-109); Chol/HDL Ratio 3.52 Ratio; Globulin 2.2 g/dL (1.6-3.3); Glucose 126 mg/dL (70-110); Potassium 4.7 mmol/L (3.5-5.5); Sodium 144 mmol/L (135-145); Total Bilirubin 0.4 mg/dL (0.3-1.2); Total Protein 6.2 g/dL (6.2-8.2)
== END | disposition home or self-care (01) ==
LOC: LABWHC1 07:31
PROVIDERS: ATTEND Internal Medicine
DX: I10 Essential (primary) hypertension (principal); E11.9 Type 2 diabetes mellitus without complications; E78.5 Hyperlipidemia, unspecified
CPT/HCPCS: 36415; 80053; 80061; 82306; 83036; 84443; 85027

== ENCOUNTER → 2023-10-26 | Outpatient (CLI) | payer MEDICAID ==
--- NOTE | 2023-10-26 16:49 | US ---
EXAMINATION TYPE: US kidneys/renal and bladder DATE OF EXAM: 10/26/2023 COMPARISON: NONE CLINICAL INDICATION: Female, 63 years old with history of E11.9 TYPE 2 DIABETES MELLITUS WITHOUT COMP LICATIO; Abnormal blood work, HTN, DM; Patient denies any other signs, symptoms, or relevant history EXAM MEASUREMENTS: Right Kidney: 13.5 x 7.1 x 6.2 cm Left Kidney: 13.2 x 6.8 x 5.0 cm Post Void Residual Volume: NA mL Right Kidney: Simple cyst noted otherwise WNL Left Kidney: WNL Bladder: WNL Bilateral Jets seen: Not seen within 3 minute period Normal Post Void Residual: NA There is no evidence for hydronephrosis at this point in time. No nephrolithiasis is seen. The urin ilya bladder is anechoic IMPRESSION: 1. No evidence for obstructive uropathy. 2. Simple appearing right renal cyst.
== END | disposition home or self-care (01) ==
LOC: RADUSWWP 16:03
PROVIDERS: ATTEND Internal Medicine
DX: N28.1 Cyst of kidney, acquired (principal); E11.9 Type 2 diabetes mellitus without complications; I10 Essential (primary) hypertension; R79.9 Abnormal finding of blood chemistry, unspecified
CPT/HCPCS: 76770

== ENCOUNTER → 2023-12-10 | Outpatient (CLI) | payer MEDICAID ==
[2023-12-10 14:13] VITALS: BP 127/78; PULSE 74; RESP 18; TEMP 98.3
--- NOTE | 2023-12-10 15:25 | P.SLEEP ---
History of Present Illness DATE: 12/10/2023 CONSULTATION/NEW PATIENT EVALUATION HISTORY OF PRESENT ILLNESS/SLEEP-WAKE EVALUATION: 63-year-old gentleman had b een evaluated in the sleep center for tiredness and sleepiness during the day. SLEEP SCHEDULE: Usually sleep schedule from 10 PM to 6 AM on weekdays and from midnight until 7:30 AM on weekend. FALLING ASLEEP: Usually no significant problems with falling asleep. DURING SLEEP: Patient has mild snoring and wakes up from sleep 2 times with nocturia. No history of hypnogogical hallucinations, sleep paralysis, or cataplexy. DURING THE DAY/WAKE STATE: In the morning patient wake up tired, feels tiredness and sleepiness during the day. Brumley sleepiness scale is 9. Patient may take nap at afternoon time, depends from show schedule. PAST MEDICAL HISTORY: Hypertension, diabetes mellitus, hyperlipidemia, coronary artery disease. PAST SURGICAL HISTORY: Total hysterectomy, cholecystectomy. MEDICATIONS: Please see below. SOCIAL HISTORY: Please see below. FAMILY HISTORY: Please see below. REVIEW OF SYSTEMS: Snoring, awakenings from sleep, sleepiness during the day. No fevers. No double vision. No recent chest pain. No shortness of breath. No abdominal pain. No bleeding episodes. No blood in urine. No seizure episodes. PHYSICAL EXAMINATION: GENERAL: A pleasant patient without any distress. VITAL SIGNS: Please see below, weight 266 pounds body mass index 44.2. HEENT: PERRLA, EOMI. Evaluation of oropharynx showed tongue protrudes midline, low position of soft palate Mallampati 4. NECK: Supple. No JVD. Thyroid is not palpable. 15.5 inches in circumference. LUNGS: Clear to percussion and to auscultation. Good air exchange. No wheezing or rhonchi. HEART: S1, S2 regular. No murmurs, gallops or rubs. ABDOMEN: Soft and nontender. Bowel sounds are present. No organomegaly appreciated. EXTREMITIES: No clubbing or cyanosis. [employer]: Awake, alert, and oriented x3. Cranial nerves 2 to 7 intact. There is no fasciculation or atrophy noted. No focal deficits observed. ASSESSMENT: 1. Mild snoring, awakenings from sleep, extremely low position of soft palate Mallampati 4, sleepiness during the day. Obstructive sleep apnea hypopnea syndrome. 2. Obesity, BMI 44.2. 3. Hypertension. 4. Diabetes mellitus. 5 hyperlipidemia. 6 . Coronary artery disease. 7. Status post total hysterectomy. 8. Status post cholecystectomy. PLAN: 1. Polysomnography for evaluation of patient's breathing during sleep. Multiple sleep latency test if polysomnogram will be negative for obstructive sleep apnea hypopnea syndrome. 2. Following plan after reading sleep study. 3. Preferable position during sleep on the side. 4. No driving if patient feels any sleepiness. Patient is aware of civil and criminal liability for unsafe driving. 5. Sleep hygiene with regular sleep time for at least 7.5-8 hours. 6. Watching and losing weight. Thank you very much for referring this patient for consultation. Sincerely, Andriy Kilpatrick MD, PhD, FAASM. Diplomat of [place] [employer], Sleep Medicine Board by [place] [employer] [place] [employer] Pro[employer] of [facility] [place] Past Medical History Past Medical History: Diabetes Mellitus, GERD/Reflux, Hyperlipidemia, Hypertension, Osteoarthritis (OA) History of Any Multi-Drug Resistant Organisms: None Reported Past Surgical History: Cholecystectomy, Hysterectomy, Joint Replacement, Orthopedic Surgery Additional Past Surgical History / Comment(s): total left knee, rt elbow pins, navneet cataract, total right hip 01/06/28 Past Anesthesia/Blood Transfusion Reactions: No Reported Reaction Past Psychological History: No Psychological Hx Reported Smoking Status: Never smoker Past Alcohol Use History: Rare Past Drug Use History: None Reported - Past Family History Father Family Medical History: Cancer Additional Family Medical History / Comment(s): lung Sister(s) Family Medical History: Cancer Additional Family Medical History / Comment(s): 1-breast, 1-osteosarcoma Medications and Allergies Home Medications Medication Instructions Recorded Confirmed Type Atorvastatin [Lipitor] 40 mg PO HS 01/05/20 12/10/23 History Ergocalciferol [Vitamin D2] 50,000 unit PO FLORES 01/05/20 10/26/20 History Omeprazole 20 mg PO DAILY 01/05/20 12/10/23 History lisinopriL 20 mg PO HS 01/05/20 12/10/23 History metFORMIN HCL [Glucophage] 1,000 mg PO BID 01/05/20 10/26/20 History Aspirin [Adult Low Dose Aspirin EC] 81 mg PO DAILY 10/23/20 12/10/23 History Metoprolol Succinate (ER) [Toprol 25 mg PO DAILY 10/23/20 12/10/23 History Xl] Semaglutide [Ozempic] 0.25 mg SQ WEEKLY 12/10/23 12/10/23 History metFORMIN HCL 500 mg PO BID 12/10/23 12/10/23 History Allergies Allergy/AdvReac Type Severity Reaction Status Date / Time No Known Allergies Allergy Unverified 10/23/20 08:56 Physical Exam Vitals: Vital Signs Temp Pulse Resp BP Pulse Ox 12/10/23 14:12 98.3 F 74 18 127/78 97 Intake and Output 12/10/23 12/10/23 12/10/23 06:59 14:59 22:59 Other: Weight 120.656 kg Sleep Note - Sleep Data ESS Total: 9 - Sleep Note Sleep Note: Temperature: 98.3 F Pulse Rate: 74 Respiratory Rate: 18 Blood Pressure: 127/78 SpO2: 97 Height: 5 ft 5 in Weight: 120.656 kg BMI: Neck Circumference: 15.5
== END ==
LOC: 3 N SLEEP 13:32
PROVIDERS: ATTEND Internal Medicine
DX: G47.33 Obstructive sleep apnea (adult) (pediatric) (principal); E66.9 Obesity, unspecified; I10 Essential (primary) hypertension; E11.9 Type 2 diabetes mellitus without complications; E78.5 Hyperlipidemia, unspecified; I25.10 Atherosclerotic heart disease of native coronary artery without angina pectoris; Z90.710 Acquired absence of both cervix and uterus; Z90.49 Acquired absence of other specified parts of digestive tract; Z68.41 Body mass index [BMI] 40.0-44.9, adult; Z79.899 Other long term (current) drug therapy; Z79.84 Long term (current) use of oral hypoglycemic drugs; Z79.85 Long-term (current) use of injectable non-insulin antidiabetic drugs
CPT/HCPCS: 99211

== ENCOUNTER → 2024-07-05 | Outpatient (CLI) | payer MEDICAID ==
[2024-07-05 10:47] LABS: Basophils # (A) 0.04 X 10*3/uL (0.00-0.10); Basophils % (A) 0.6 %; Eosinophils # (A) 0.19 X 10*3/uL (0.04-0.35); Eosinophils % (A) 2.8 %; HCT 37.1 % (37.2-46.3); HGB 11.8 g/dL (12.0-15.0); Lymphocytes # (A) 1.71 X 10*3/uL (0.90-5.00); Lymphocytes % (A) 25.6 %; MCH 27.6 pg (27.0-32.0); MCHC 31.8 g/dL (32.0-37.0); MCV 86.7 FL (80.0-97.0); Mean Platelet Volume 9.7 FL (9.5-12.2); Monocytes # (A) 0.36 X 10*3/uL (0.20-1.00); Monocytes % (A) 5.4 %; NRBC Per 100 WBC 0 X 10*3/uL (0.00-0.01); Neutrophils # (A) 4.37 X 10*3/uL (1.80-7.70); Neutrophils % (A) 65.3 %; Platelet Count 229 X 10*3/uL (140-440); RBC 4.28 X 10*6/uL (4.10-5.20); RDW 13.5 % (11.5-14.5); WBC 6.69 X 10*3/uL (4.50-10.00)
[2024-07-05 11:13] LABS: Magnesium 1.9 mg/dL (1.5-2.4)
[2024-07-05 11:14] LABS: Albumin 3.9 g/dL (3.8-4.9); BUN/Creat Ratio 12.33 Ratio (12.00-20.00); Blood Urea Nitrogen 14.8 mg/dL (9.0-27.0); Calcium 9.2 mg/dL (8.7-10.3); Carbon Dioxide 25.7 mmol/L (21.6-31.8); Chloride 105 mmol/L (96-109); Glucose 162 mg/dL (70-110); Iron 53 UG/DL (50-170); Phosphorus 3.5 mg/dL (2.4-5.1); Potassium 4.7 mmol/L (3.5-5.5); Sodium 142 mmol/L (135-145); Total Iron Binding Capacity 368 UG/DL (228-460); Uric Acid 5.4 mg/dL (2.9-7.7)
== END | disposition home or self-care (01) ==
LOC: LABWHC1 07:24
PROVIDERS: ATTEND Internal Medicine Nephrology
DX: N18.30 Chronic kidney disease, stage 3 unspecified (principal); D63.1 Anemia in chronic kidney disease; E55.9 Vitamin D deficiency, unspecified; N25.81 Secondary hyperparathyroidism of renal origin; M10.9 Gout, unspecified; N39.0 Urinary tract infection, site not specified
CPT/HCPCS: 36415; 80048; 82040; 82306; 83540; 83550; 83735; 83970; 84100; 84550; 85025; 86334

== ENCOUNTER → 2024-10-11 | Outpatient (CLI) | payer MEDICAID ==
[2024-10-11 14:44] LABS: Basophils # (A) 0.04 X 10*3/uL (0.00-0.10); Basophils % (A) 0.7 %; Eosinophils # (A) 0.14 X 10*3/uL (0.04-0.35); Eosinophils % (A) 2.4 %; HCT 37.5 % (37.2-46.3); HGB 11.8 g/dL (12.0-15.0); Lymphocytes # (A) 1.62 X 10*3/uL (0.90-5.00); Lymphocytes % (A) 27.6 %; MCH 27.9 pg (27.0-32.0); MCHC 31.5 g/dL (32.0-37.0); MCV 88.7 FL (80.0-97.0); Mean Platelet Volume 9.7 FL (9.5-12.2); Monocytes # (A) 0.45 X 10*3/uL (0.20-1.00); Monocytes % (A) 7.7 %; NRBC Per 100 WBC 0 X 10*3/uL (0.00-0.01); Neutrophils % (A) 61.4 %; Platelet Count 239 X 10*3/uL (140-440); RBC 4.23 X 10*6/uL (4.10-5.20); RDW 14.1 % (11.5-14.5); WBC 5.86 X 10*3/uL (4.50-10.00)
[2024-10-11 15:26] LABS: % Iron Saturation 14.71 (12.00-45.00); Ferritin 36.6 ng/mL (10.0-291.0); Iron 55 UG/DL (50-170); Total Iron Binding Capacity 374 UG/DL (228-460)
[2024-10-11 15:38] LABS: BUN/Creat Ratio 15.18 Ratio (12.00-20.00); Blood Urea Nitrogen 16.7 mg/dL (9.0-27.0); Calcium 9.2 mg/dL (8.7-10.3); Carbon Dioxide 25.1 mmol/L (21.6-31.8); Chloride 105 mmol/L (96-109); Glucose 145 mg/dL (70-110); Potassium 5.1 mmol/L (3.5-5.5); Sodium 141 mmol/L (135-145)
[2024-10-11 16:28] LABS: Appearance,Urine Clear (Clear); Bilirubin,Urine Negative (Negative); Blood,Urine Negative (Negative); Color,Urine Yellow (Yellow); Ketones,Urine Negative (Negative); Nitrite,Urine Negative (Negative); Specific Gravity,Urine 1.014 (1.001-1.030)
[2024-10-11 21:20] LABS: Microalbumin Creatinine Ratio <8 mg/g Cr (0-30)
== END | disposition home or self-care (01) ==
LOC: LABWHC1 09:16
PROVIDERS: ATTEND Nurse Practitioner Family
DX: N18.30 Chronic kidney disease, stage 3 unspecified (principal); N39.0 Urinary tract infection, site not specified; D63.1 Anemia in chronic kidney disease
CPT/HCPCS: 36415; 80048; 81003; 82040; 82043; 82570; 82728; 83540; 83550; 85025

== ENCOUNTER → 2024-11-22 | Outpatient (CLI) | payer MEDICAID ==
--- NOTE | 2024-11-22 08:27 | MM ---
Reason for Exam: Screening (asymptomatic). Last mammogram was performed 3 year(s) and 5 month(s) ago. Patient History: Menarche at age 12. First Full-Term at age 22. Hysterectomy at age 46. Postmenopausal. Sister had breast cancer, age 58. Risk Values: Toña 5 year model risk: 3.1%. NCI Lifetime model risk: 12.1%. Prior Study Comparison: 04/01/2017 Bilateral Screening Mammogram, [facility]. 04/09/2020 Bilateral Screening Mammogram, [facility]. 07/11/2021 Bilateral Screening Mammogram, [facility]. Tissue Density: The breasts are heterogeneously dense, which may obscure small masses. Findings: Analyzed By CAD. There is a new oval 13 mm mass in the right breast outer aspect approximately 6 cm distance from nipple. There is new 13 mm oval mass retroareolar region of the left breast. Overall Assessment: Incomplete: need additional imaging evaluation, BI-RAD 0 Management: Diagnostic Breast Ultrasound of both breasts. Targeted ultrasound bilaterally. Patient should continue monthly self-breast exams. A clinical breast exam by your physician is recommended on an annual basis. This exam should not preclude additional follow-up of suspicious palpable abnormalities. Note on Toña scores and lifetime risk: 1. A Toña score greater than 3% is considered moderate risk. If this is the case, consider specialist referral to assess eligibility for a risk reducing agent. 2. If overall lifetime risk for the development of breast cancer is 20% or higher, the patient may qualify for future screening with alternating mammogram and breast MRI. [facility], , 11/22/2024 8:24 AM. Electronically signed and approved by: August Yeager M.D.
== END | disposition home or self-care (01) ==
LOC: RADMAMWWP 07:12
PROVIDERS: ATTEND Family Medicine
DX: Z12.31 Encounter for screening mammogram for malignant neoplasm of breast (principal); R92.333 Mammographic heterogeneous density, bilateral breasts; Z78.0 Asymptomatic menopausal state; Z80.3 Family history of malignant neoplasm of breast
CPT/HCPCS: 77063; 77067

== ENCOUNTER → 2024-11-25 | Outpatient (CLI) | payer MEDICAID ==
--- NOTE | 2024-11-25 15:39 | USB ---
Reason for Exam: Additional evaluation requested from prior study. Patient History: Menarche at age 12. First Full-Term at age 22. Hysterectomy at age 46. Postmenopausal. Sister had breast cancer, age 58. Risk Values: Toña 5 year model risk: 3.1%. NCI Lifetime model risk: 12.1%. Technique: Method: Targeted. Prior Study Comparison: 04/09/2020 Bilateral Screening Mammogram, [facility]. 07/11/2021 Bilateral Screening Mammogram, [facility]. 11/22/2024 Bilateral MG 3D screening mammo w/cad, [facility]. Findings: The lateral section of the breast of the right breast, the axilla of both breasts and the retroareolar of both breasts were scanned. A US of right breast 9:00 position, nipple and axilla. A ultrasound left breast breast and axilla and retro-areolar region were reviewed. Right breast: At the 9:00 position there is a appearing cyst measuring 9 x 6 x 1 cm. Left breast: In the retroareolar portion of the left breast there is a 1.3 x 0.5 x 1.1 cm simple appearing cyst. Benign-appearing lymph nodes in the left axilla. Overall Assessment: Probably benign, BI-RAD 3 Management: Diagnostic Mammogram of both breasts in 6 months. A clinical breast exam by your physician is recommended on an annual basis and results should be correlated with mammographic findings. This exam should not preclude additional follow-up of suspicious palpable abnormalities. Results were given to the patient verbally at the time of exam. [facility], , 11/25/2024 3:36 PM. Electronically signed and approved by: Aravind Murphy M.D. Radiologis
== END | disposition home or self-care (01) ==
LOC: RADUSWWP 15:12
PROVIDERS: ATTEND Family Medicine
DX: R92.8 Other abnormal and inconclusive findings on diagnostic imaging of breast (principal); Z78.0 Asymptomatic menopausal state; Z80.3 Family history of malignant neoplasm of breast